=== PATIENT | female | born 1985 | race African-American/Black ===

== ENCOUNTER 2017-09-07 09:27 | Emergency (ER) | payer OTHER ==
[~2017-09-07] VITALS: Ht 152.4 cm; Wt 47.7 kg
[2017-09-07] MEDS ORDERED: AMLO-512 PO (09:37)
[2017-09-07] MEDS ORDERED: HYDR25TA PO (09:37)
[2017-09-07] MEDS ORDERED: ONDANSETRON HCL 4 MG TABLET PO ONE (11:15)
[2017-09-07] MEDS ORDERED: ACETAMINOPHEN 325 MG TABLET PO ONE (11:15)
[2017-09-07 12:04] VITALS: BP 185/102
== END 2017-09-07 12:39 | disposition home or self-care (01) ==
LOC: EMS 09:28
DX: S60.221A Contusion of right hand, initial encounter (principal); R11.2 Nausea with vomiting, unspecified; I10 Essential (primary) hypertension; F17.210 Nicotine dependence, cigarettes, uncomplicated; F12.90 Cannabis use, unspecified, uncomplicated; W51.XXXA Accidental striking against or bumped into by another person, initial encounter; Y93.89 Activity, other specified; Y92.89 Other specified places as the place of occurrence of the external cause; Y99.8 Other external cause status
CPT/HCPCS: 73130; 81025; 99284; Q0162

== ENCOUNTER 2017-11-19 16:18 | Emergency (ER) | payer OTHER ==
[~2017-11-19] VITALS: Ht 152.4 cm; Wt 45.5 kg
[~2017-11-19 16:18] MED LIST: AMLO-512 PO; HYDR25TA PO
[2017-11-19] MEDS ORDERED: PROPARACAINE/FLUORESCEIN SOD 0.5-0.25% 0.5 ML OPHTHALMIC SOLUTION OS ONE (17:45)
[2017-11-19] MEDS ORDERED: AmLODIPine BESYLATE 5 MG TABLET PO ONE (17:45)
[2017-11-19] MEDS ORDERED: HYDROCHLOROTHIAZIDE 25 MG TABLET PO ONE (17:45)
[2017-11-19] MEDS ORDERED: NEOMYCIN/BACITRACIN/POLYMYXIN B 3.5 GM OPHTHALMIC OINTMENT OS ONE (18:15)
[2017-11-19 18:42] VITALS: BP 187/91
== END 2017-11-19 18:59 | disposition home or self-care (01) ==
LOC: EMS 16:24
DX: S05.02XA Injury of conjunctiva and corneal abrasion without foreign body, left eye, initial encounter (principal); H53.142 Visual discomfort, left eye; I10 Essential (primary) hypertension; F12.90 Cannabis use, unspecified, uncomplicated; F17.210 Nicotine dependence, cigarettes, uncomplicated; Z76.0 Encounter for issue of repeat prescription; X58.XXXA Exposure to other specified factors, initial encounter; Y93.89 Activity, other specified; Y92.89 Other specified places as the place of occurrence of the external cause; Y99.8 Other external cause status
CPT/HCPCS: 84703; 99284; Z7610

== ENCOUNTER 2023-08-10 11:45 | Inpatient (IN) | payer OTHER ==
[2023-08-10] VITALS (10 sets, daily range): BP systolic 127–210; BP diastolic 128–144; PULSE 127–205; RESP 18–19; TEMP 97.5
[~2023-08-10] VITALS: Ht 152.4 cm; Wt 42.2 kg
[~2023-08-10 11:45] MED LIST changes: +AMLO-258 PO; -AMLO-512 PO; -HYDR25TA PO; +HYDR25TA2 PO
[2023-08-10] MEDS: GLUCAGON,HUMAN RECOMBINANT 1 MG VIAL IM ONE (11:58)
[2023-08-10] MEDS ORDERED: LIDOCAINE/PF 1% 2 ML VIAL IM ONE (12:00)
[2023-08-10] MEDS: DEXTROSE 50%-WATER 25 GM/50 ML SYRINGE IVP ONE (12:24)
[2023-08-10] MEDS: DILTIAZEM HCL 5 MG/ML 5 ML VIAL IVP ONE (12:24)
[2023-08-10] MEDS ORDERED: 0.9% SODIUM CHLORIDE 10 ML SYRINGE IVP PRN (12:30)
[2023-08-10 12:34] LABS: ABG BASE EXCESS -17.4 mmol/L (-2.0-3.0); ABG CARBOXYHEMOGLOBIN 0.6 % (0.0-1.5); ABG HCO3 12.1 mmol/L (22.0-26.0); ABG OXYGEN CONTENT 13.2 mL/dL (15.0-23.0); ABG OXYGEN SATURATION 99.3 % (95.0-98.0); ABG OXYHEMOGLOBIN 98.7 % (94.0-100.0); ABG PCO2 26 mmHg (35-45); PO2, ARTERIAL BG 260.6 mmHg (92.0-100.0); SOURCE, BLOOD GAS ARTERIAL
[2023-08-10 12:35] LABS: ABG PH 7.216 (7.350-7.450); ALLEN TEST, BLOOD GAS Positive; O2 DEVICE,BLOOD GAS BAG VALVE MASK (ROOM AIR); SITE, BLOOD GAS RT BRACHIAL
[2023-08-10 12:43] LABS: BASOPHILS % (AUTO) 0.4 % (0.0-2.0); EOSINOPHILS % (AUTO) 0 % (1.0-6.0); HEMATOCRIT 27.6 % (36-46); HEMOGLOBIN 8.7 g/dL (12.0-16.0); LYMPHOCYTES # (AUTO) 1.2 K/uL (1.0-4.8); LYMPHOCYTES % (AUTO) 7.1 % (22.0-44.0); MEAN CORPUSCULAR HEMOGLOBIN 31.5 pg (26.0-34.0); MEAN CORPUSCULAR HGB CONC 31.4 G/dL (31.0-37.0); MEAN CORPUSCULAR VOLUME 100 fL (80-100); MONOCYTES # (AUTO) 1.1 K/uL (0.1-1.0); MONOCYTES % (AUTO) 6.8 % (2.0-9.0); NEUTROPHILS # (AUTO) 14.5 K/uL (1.8-7.7); PLATELET COUNT (AUTO) 457 K/uL (150-450); RED BLOOD CELL COUNT(AUTO) 2.76 MIL/uL (4.00-5.20); RED CELL DISTRIBUTION WIDTH 18.7 % (11.5-14.5); WHITE BLOOD COUNT (AUTO) 16.9 K/uL (4.5-11.0)
[2023-08-10] MEDS ORDERED: BISACODYL 10 MG RECTAL RECTAL SUPPOSITORY PR PRN (12:45)
[2023-08-10] MEDS ORDERED: INSULIN LISPRO 100 UNITS/ML SQ PRN (12:45)
[2023-08-10] MEDS ORDERED: ACETAMINOPHEN 325 MG TABLET PO PRN (12:45)
[2023-08-10] MEDS ORDERED: DEXTROSE 50%-WATER 25 GM/50 ML SYRINGE IVP PRN (12:45)
[2023-08-10] MEDS: DILTIAZEM HCL 125 MG in DEXTROSE 5%-WATER 100 ML IV PRN (12:47)
[2023-08-10] MEDS: SODIUM CHLORIDE 0.9% 500 ML IV ONE (12:47)
[2023-08-10 12:49] LABS: NEUTROPHILS % (AUTO) 85.7 % (40.0-70.0)
[2023-08-10] MEDS: AmLODIPine BESYLATE 10 MG TABLET NG SCH (12:50)
[2023-08-10 12:57] LABS: TROPONIN I-HIGH SENSITIVITY 91 ng/L (<51)
[2023-08-10 13:00] LABS: B-TYPE NATRIURETIC PEPTIDE > 5000 pg/mL (0-100)
[2023-08-10 13:07] LABS: D-DIMER 10.98 mg/L FEU (0.00-0.50); INR 2.1 (0.9-1.1); PROTHROMBIN TIME 20.6 SEC (9.4-11.6)
[2023-08-10 13:09] LABS: RBC MORPHOLOGY COMMENT ABNORMAL RBC MORPH
[2023-08-10] MEDS ORDERED: NiCARDipine HCL 25 MG in SODIUM CHLORIDE 0.9% 240 ML IV PRN (13:15)
[2023-08-10 13:18] LABS: ALANINE AMINOTRANSFERASE 269 U/L (12-78); ALBUMIN 3.5 g/dL (3.4-5.0); ALKALINE PHOSPHATASE 252 U/L (46-116); ANION GAP 28 mmol/L (8-16); ASPARTATE AMINOTRANSFERASE 354 U/L (15-37); BILIRUBIN,TOTAL 1.1 mg/dL (0.1-1.0); CALCIUM, TOTAL 9.6 mg/dL (8.8-10.5); CARBON DIOXIDE 14 mmol/L (22-29); CHLORIDE 95 mmol/L (98-107); CREATINE KINASE, TOTAL ONLY 88 U/L (26-192); CREATININE 10.68 mg/dL (0.60-1.30); GLOMERULAR FILTR. RATE CALC 5 mL/min (>60); HCG,QUANTITATIVE 1 mIU/mL (0-6); SODIUM SERUM 137 mmol/L (136-145); UREA NITROGEN, BLOOD 90 mg/dL (7-18)
[2023-08-10 13:22] LABS: GLUCOSE,RANDOM 47 mg/dL (70-110); POTASSIUM 6.2 mmol/L (3.5-5.1)
[2023-08-10 13:38] LABS: LACTIC ACID 8.7 mmol/L (0.4-2.0)
[2023-08-10] MEDS: ONDANSETRON HCL 4 MG/2 ML VIAL IVP PRN (13:56)
[2023-08-10] MEDS: MORPHINE SULFATE 4 MG/ML SYRINGE IVP ONE (13:57)
[2023-08-10 14:56] LABS: INFLUENZA TYPE A NEGATIVE FOR TYPE A (NEGATIVE); INFLUENZA TYPE B NEGATIVE FOR TYPE B (NEGATIVE)
[2023-08-10] MEDS: CefTRIAXone 1 GM/DEXTROSE 50 ML IV ONE (15:09)
[2023-08-10] MEDS: HydrALAZINE HCL 20 MG/ML VIAL IVP PRN (16:22)
[2023-08-10 19:04] LABS: TROPONIN I-HIGH SENSITIVITY 70 ng/L (<51)
[2023-08-10] MEDS: LABETALOL HCL 200 MG in DEXTROSE 5%-WATER 160 ML IV PRN (19:34)
[2023-08-10] MEDS: ACETAMINOPHEN 650 MG/20.3 ML SOLUTION UDCUP NG PRN (19:35)
[2023-08-10] MEDS: CloNIDine HCL 0.1 MG TABLET PO ONE (19:54)
[2023-08-10 20:01] LABS: GLUCOMETER DEV NAME(LOC) ERT.5; GLUCOSE,POINT OF CARE 106 MG/DL (70-110)
[2023-08-10] MEDS: MORPHINE SULFATE 2 MG/ML SYRINGE IVP PRN (20:46)
[2023-08-10] MEDS: HEPARIN SODIUM,PORCINE 5,000 UNITS/ML VIAL SQ SCH (20:47)
[2023-08-10] MEDS ORDERED: CARVEDILOL 6.25 MG TABLET PO SCH (21:00)
[2023-08-10] MEDS ORDERED: LOSARTAN POTASSIUM 50 MG TABLET PO SCH (21:00)
[2023-08-10] MEDS: CHLORHEXIDINE GLUCONATE 2% TOWELETTE [2'S/6'S] TP SCH (21:18)
[2023-08-10] MEDS ORDERED: DILTIAZEM HCL 125 MG in DEXTROSE 5%-WATER 100 ML IV SCH (23:00)
[2023-08-10] MEDS: CloNIDine HCL 0.1 MG TABLET PO SCH (23:09)
[2023-08-11] VITALS (13 sets, daily range): BP systolic 140–196; BP diastolic 63–111; PULSE 60–74; RESP 16–20; TEMP 98.1–98.8
[2023-08-11] MEDS: DILTIAZEM HCL 125 MG in DEXTROSE 5%-WATER 100 ML IV PRN (01:04)
[2023-08-11 06:07] LABS: BASOPHILS % (AUTO) 0.4 % (0.0-2.0); EOSINOPHILS % (AUTO) 0.4 % (1.0-6.0); HEMATOCRIT 23.9 % (36-46); HEMOGLOBIN 8.1 g/dL (12.0-16.0); LYMPHOCYTES # (AUTO) 0.7 K/uL (1.0-4.8); LYMPHOCYTES % (AUTO) 6.1 % (22.0-44.0); MEAN CORPUSCULAR HEMOGLOBIN 32.6 pg (26.0-34.0); MEAN CORPUSCULAR HGB CONC 33.7 G/dL (31.0-37.0); MEAN CORPUSCULAR VOLUME 97 fL (80-100); MONOCYTES # (AUTO) 0.8 K/uL (0.1-1.0); MONOCYTES % (AUTO) 7.5 % (2.0-9.0); NEUTROPHILS # (AUTO) 9.4 K/uL (1.8-7.7); PLATELET COUNT (AUTO) 317 K/uL (150-450); RED BLOOD CELL COUNT(AUTO) 2.47 MIL/uL (4.00-5.20); RED CELL DISTRIBUTION WIDTH 17.9 % (11.5-14.5)
[2023-08-11 06:12] LABS: CALCIUM, TOTAL 9.1 mg/dL (8.8-10.5); CREATININE 4.78 mg/dL (0.60-1.30); POTASSIUM 3.7 mmol/L (3.5-5.1)
[2023-08-11 06:16] LABS: GLUCOMETER DEV NAME(LOC) ERT.5; GLUCOSE,POINT OF CARE 79 MG/DL (70-110)
[2023-08-11] MEDS: LOSARTAN POTASSIUM 25 MG TABLET PO SCH (06:22)
[2023-08-11 06:26] LABS: NEUTROPHILS % (AUTO) 85.6 % (40.0-70.0)
[2023-08-11] MEDS: METOPROLOL TARTRATE 25 MG TABLET PO SCH (08:18)
[2023-08-11] MEDS: PANTOPRAZOLE SODIUM 40 MG/VIAL IVP SCH (08:18)
[2023-08-11] MEDS ORDERED: LIDOCAINE/PF 1% 2 ML VIAL ONE (12:00)
[2023-08-11] MEDS ORDERED: DiphenhydrAMINE HCL 50 MG/ML VIAL ONE (12:00)
[2023-08-11 12:05] LABS: GLUCOMETER DEV NAME(LOC) 5N.1D; GLUCOSE,POINT OF CARE 139 MG/DL (70-110)
[2023-08-11] MEDS ORDERED: DEXTROSE 50%-WATER 25 GM/50 ML SYRINGE IVP ONE (16:29)
[2023-08-11 22:21] LABS: GLUCOMETER DEV NAME(LOC) 5N.2C; GLUCOSE,POINT OF CARE 82 MG/DL (70-110)
[2023-08-12 00:17] VITALS: BP 132/77; PULSE 62; RESP 18; TEMP 98
[2023-08-12] MEDS: CloNIDine HCL 0.1 MG TABLET PO SCH (00:35)
[2023-08-12 02:01] LABS: GLUCOMETER DEV NAME(LOC) 5S.1B; GLUCOSE,POINT OF CARE 129 MG/DL (70-110)
[2023-08-12 05:29] VITALS: BP 138/90; PULSE 63; RESP 20; TEMP 98.3
[2023-08-12 05:51] LABS: GLUCOMETER DEV NAME(LOC) 5N.1D; GLUCOSE,POINT OF CARE 73 MG/DL (70-110)
[2023-08-12 08:00] VITALS: BP 154/103; PULSE 69; RESP 18; TEMP 98.5
[2023-08-12] MEDS: ASPIRIN 81 MG DR TABLET PO SCH (10:42)
[2023-08-12 12:00] VITALS: BP 131/77; PULSE 65; RESP 18; TEMP 97.6
[2023-08-12 12:47] LABS: BASOPHILS % (AUTO) 0.3 % (0.0-2.0); EOSINOPHILS % (AUTO) 1.9 % (1.0-6.0); HEMATOCRIT 24.4 % (36-46); HEMOGLOBIN 7.9 g/dL (12.0-16.0); LYMPHOCYTES # (AUTO) 0.8 K/uL (1.0-4.8); LYMPHOCYTES % (AUTO) 14.5 % (22.0-44.0); MEAN CORPUSCULAR HEMOGLOBIN 32.1 pg (26.0-34.0); MEAN CORPUSCULAR HGB CONC 32.2 G/dL (31.0-37.0); MEAN CORPUSCULAR VOLUME 100 fL (80-100); MONOCYTES # (AUTO) 0.6 K/uL (0.1-1.0); MONOCYTES % (AUTO) 10.3 % (2.0-9.0); NEUTROPHILS # (AUTO) 3.9 K/uL (1.8-7.7); PLATELET COUNT (AUTO) 259 K/uL (150-450); RED BLOOD CELL COUNT(AUTO) 2.45 MIL/uL (4.00-5.20); RED CELL DISTRIBUTION WIDTH 18.3 % (11.5-14.5); WHITE BLOOD COUNT (AUTO) 5.4 K/uL (4.5-11.0)
[2023-08-12 13:24] LABS: CALCIUM, TOTAL 7.6 mg/dL (8.8-10.5); CREATININE 3.24 mg/dL (0.60-1.30); POTASSIUM 3.5 mmol/L (3.5-5.1)
[2023-08-12 15:34] VITALS: BP 134/92; PULSE 59; RESP 18; TEMP 97.9
[2023-08-12 17:40] LABS: GLUCOMETER DEV NAME(LOC) 5N.1D; GLUCOSE,POINT OF CARE 104 MG/DL (70-110)
[2023-08-12] MEDS ORDERED: APIXABAN 2.5 MG TABLET PO SCH (21:00)
[2023-08-12] MEDS ORDERED: HEPARIN SODIUM,PORCINE 5,000 UNITS/ML VIAL SQ SCH (21:00)
[2023-08-13 04:31] LABS: GLUCOMETER DEV NAME(LOC) 5N.2C; GLUCOSE,POINT OF CARE 93 MG/DL (70-110)
[2023-08-13 05:07] LABS: HEPATITIS A ANTIBODY IGM Negative (Negative); HEPATITIS B CORE IGM Negative (Negative); HEPATITIS C AB (EIA) Non Reactive (Non Reactive)
[2023-08-15] MEDS ORDERED: EPOETIN ALFA 10,000 UNITS/ML VIAL SQ SCH (09:00)
== END 2023-08-12 17:40 | disposition short-term general hospital (02) | DRG 199 ==
LOC: EMS 11:45 → ICUN 12:52 → ICU 12:52 → UNDOADMIN 12:52 → AHU 08-11 06:20 → 5S 08-11 09:53
PROVIDERS: ADMIT Internal Medicine; ATTEND Internal Medicine
PROC: 5A1D70Z Performance of Urinary Filtration, Intermittent, Less than 6 Hours Per Day (ICD-10-PCS; principal; 2023-08-10)
PROC: 5A1D70Z Performance of Urinary Filtration, Intermittent, Less than 6 Hours Per Day (ICD-10-PCS; 2023-08-11)
DX: I16.1 Hypertensive emergency (principal); J96.91 Respiratory failure, unspecified with hypoxia; G93.41 Metabolic encephalopathy; E87.20 Acidosis, unspecified; D63.8 Anemia in other chronic diseases classified elsewhere; D63.1 Anemia in chronic kidney disease; N18.6 End stage renal disease; R65.10 Systemic inflammatory response syndrome (SIRS) of non-infectious origin without acute organ dysfunction; I42.2 Other hypertrophic cardiomyopathy; E16.2 Hypoglycemia, unspecified; I13.2 Hypertensive heart and chronic kidney disease with heart failure and with stage 5 chronic kidney disease, or end stage renal disease; I07.1 Rheumatic tricuspid insufficiency; R74.01 Elevation of levels of liver transaminase levels; E87.5 Hyperkalemia; I48.91 Unspecified atrial fibrillation; Z99.2 Dependence on renal dialysis; Z79.899 Other long term (current) drug therapy
CPT/HCPCS: 36556; 36600; 71045; 76700; 80048; 80053; 80074; 82550; 82805; 82962; 83605; 83880; 84145; 84484; 84702; 85025; 85379; 85610; 85730; 87040; 87081; 87340; 87804; 90935; 93005; 93306; 93970; 99285; C9113; J0360; J0696; J1200; J1644; J2270; J2405; J3490; J7040; J7050; J7060; 36415-L1; 36415-TC